=== PATIENT | female | born 1980 | race Hispanic/Latino ===

== ENCOUNTER 2021-12-30 18:49 | Emergency (ER) | payer OTHER, BC ==
[~2021-12-30] VITALS: Ht 162.6 cm; Wt 92.1 kg
[2021-12-30 18:51] VITALS: BP 154/81
[2021-12-30] MEDS ORDERED: FAMO-136 PO (19:23)
[2021-12-30] MEDS ORDERED: PRED20TA3 PO (19:23)
[2021-12-30] MEDS ORDERED: CETI1SOL17 PO (19:23)
[2021-12-30] MEDS ORDERED: FAMOTIDINE 20MG TAB PO ONE (19:30)
[2021-12-30] MEDS ORDERED: DIPHENHYDRAMINE HCL 25 MG CAPSULE PO ONE (19:30)
[2021-12-30] MEDS ORDERED: SOLU-MEDROL 125MG VIAL IM ONE (19:30)
[2021-12-30 19:45] LABS: APPEARANCE,URINE Turbid (CLEAR); BILIRUBIN,URINE Negative (NEGATIVE); COLOR,URINE Yellow (YELLOW); GLUCOSE, URINE (UA) Negative (NEGATIVE); KETONES,URINE Trace mg/dL (NEGATIVE); LEUKOCYTE ESTERASE ,URINE Small (NEGATIVE); NITRATE,URINE Negative (NEGATIVE); OCCULT BLOOD,URINE Small (NEGATIVE); PH,URINE 5.5 (5.0-8.0); PROTEIN,URINE POS 1+ mg/dL (NEGATIVE)
[2021-12-30 20:00] LABS: BACTERIA,URINE Moderate /HPF (None Seen); SQUAMOUS EPITHELIAL CELL,UR 30-50 /HPF (0-2)
== END 2021-12-30 20:24 | disposition home or self-care (01) ==
LOC: EDH 18:49
DX: L50.9 Urticaria, unspecified (principal); G43.909 Migraine, unspecified, not intractable, without status migrainosus; Z79.52 Long term (current) use of systemic steroids
CPT/HCPCS: 81001; 81025; 87088; 96372; 99283; J2930; Q0163